=== PATIENT | female | born 1945 | race Caucasian/White ===

== ENCOUNTER → 2016-11-23 | Outpatient (CLI) | payer MEDICARE, OTHER ==
[~2016-11-23] MED LIST: ALLEGRA; BUPR-50 PO; GLUC1CAP64 PO; LACT1CAP67 PO; LEVO150T9 PO; METAMUCIL; MIRALAX; MULT-806 PO; VITA-286 PO; [UNRECOGNIZED DRUG - OTHER] PO
== END ==
LOC: IMA 11:17
PROVIDERS: ATTEND Internal Medicine
DX: N95.1 Menopausal and female climacteric states (principal); M85.89 Other specified disorders of bone density and structure, multiple sites; E58 Dietary calcium deficiency; N91.2 Amenorrhea, unspecified; N95.8 Other specified menopausal and perimenopausal disorders; Z87.828 Personal history of other (healed) physical injury and trauma; Z90.722 Acquired absence of ovaries, bilateral